=== PATIENT | female | born 1985 | race Caucasian/White ===

== ENCOUNTER 2016-08-09 11:36 | Emergency (ER) | payer OTHER ==
[2016-08-09 12:06] VITALS: BP 117/72
[2016-08-09] MEDS ORDERED: Ibuprofen TAB* 400 MG PO ONE (12:23)
--- NOTE | 2016-08-09 12:24 | ED ---
Upper Extremity Pain - History of Current Complaint Chief Complaint: EDExtremityUpper Stated Complaint: FALL/RT HAND /RT SIDE BACK PAIN Hx Obtained From: Patient Mechanism Of Injury: Fall From A Standing Position - pt fell down 1/2 flight of stairs, injured low back and R hand ambulatory after fall Onset/Duration: Started Hours Ago - 2 Timing: Constant Severity Initially: Moderate Severity Currently: Moderate Pain Location: Hand, Other: - low back Character: Throbbing, Stiffness Aggravating Factor(s): Movement Alleviating Factor(s): Rest, Ice Associated Signs & Symptoms: Positive: Swelling - R hand, Bruising - R hand. Negative: Weakness, Numbness/Tingling Related History: Dominant Hand Right - Allergies/Home Medications Allergies/Adverse Reactions: Allergies Allergy/AdvReac Type Severity Reaction Status Date / Time No Known Allergies Allergy Verified 06/19/16 14:35 PMH/Surg Hx/FS Hx/Imm Hx Previously Healthy: Yes Endocrine/Hematology History: Denies: Hx Blood Disorders Cardiovascular History: Denies: Other Cardiovascular Problems/Disorders Respiratory History: Denies: Other Respiratory Problems/Disorders GI History: Denies: Other GI Disorders History: Reports: Other Problems/Disorders - Hx UTI Musculoskeletal History: Denies: Other Musculoskeletal History Neurological History: Denies: Hx Headaches, Other Neuro Impairments/Disorders Psychiatric History: Denies: Hx Anxiety, Hx Depression - Surgical History Surgery Procedure, Year, and Place: tubal Infectious Disease History: No Infectious Disease History: Denies: Traveled Outside the [place] in Last 30 Days - Family History Known Family History: Positive: Other Family History: Mother Hx of UTIs - Social History Alcohol Use: None Substance Use Type: Reports: None Smoking Status (MU): Light Every Day Tobacco Smoker Review of Systems Constitutional: Negative Cardiovascular: Negative Negative: Chest Pain Respiratory: Negative Negative: Shortness Of Breath Gastrointestinal: Negative Negative: Abdominal Pain Positive: Other - see note Positive: Bruising - R hand Neurological: Negative Negative: Headache Psychological: Normal All Other Systems Reviewed And Are Negative: Yes Physical Exam Triage Information Reviewed: Yes Vital Signs On Initial Exam: Initial Vitals Temp Pulse Resp BP Pulse Ox 98 F 91 15 117/72 100 08/09/16 11:58 08/09/16 11:58 08/09/16 11:58 08/09/16 11:58 08/09/16 11:58 Vital Signs Reviewed: Yes Appearance: Positive: Well-Appearing, No Pain Distress, Obese Skin: Positive: Warm, Skin Color Reflects Adequate Perfusion, Dry Neck: Positive: Supple, Nontender Respiratory/Lung Sounds: Positive: Clear to Auscultation Cardiovascular: Positive: Normal, RRR, Pulses are Symmetrical in both Upper and Lower Extremities Abdomen Description: Positive: Nontender, Soft Musculoskeletal: Positive: Strength/ROM Intact - pain with R hanf flexion. low back pain on palp L4-L5 and with flexion Neurological: Positive: Normal, Sensory/Motor Intact, Alert, Oriented to Person Place, Time Psychiatric: Positive: Normal Diagnostics - Vital Signs Vital Signs Temp Pulse Resp BP Pulse Ox 08/09/16 11:58 98 F 91 15 117/72 100 - Laboratory Lab Statement: Any lab studies that have been ordered have been reviewed, and results considered in the medical decision making process. Course/Dx - Course Course Of Treatment: iStop Reference #: [id number] - Diagnoses Differential Diagnosis/HQI/PQRI: Positive: Contusion, Fracture (Closed), Strain , Sprain Provider Diagnoses: Contusion, Low back strain Discharge - Discharge Plan Condition: Stable Disposition: HOME Prescriptions: HYDROcodone/ACETAMIN 5-325 MG* [[place] 5-325 TAB*] 1 tab PO Q4H PRN #12 tab MDD 6 PRN Reason: Pain Patient Education Materials: Contusion in Adults (ED), Low Back Strain (ED) Referrals: No Primary Care Phys,NOPCP [Primary Care Provider] - Yue Quintero MD [Medical Doctor] - 1 Week (if hand pain is no better) Additional Instructions: apply ice to areas of pain for 48-72h use ibuprofen as directed over the counter for pain use hydrocodone for severe pain for short time only. Return here if symptoms worsen
--- NOTE | 2016-08-09 13:11 | RAD ---
INDICATION: Right hand pain COMPARISON: None TECHNIQUE: AP, lateral, and oblique views were obtained. FINDINGS: The bony structures, joint spaces, and soft tissues are normal for age. IMPRESSION: NEGATIVE EXAMINATION.
--- NOTE | 2016-08-09 13:11 | RAD ---
INDICATION: Back pain COMPARISON: None TECHNIQUE: Routine PA, lateral, and oblique imaging was performed . FINDINGS: Bones: There are no acute bony findings. There are no significant osteoarthritic findings. Alignment: Normal Disc spaces: The disc spaces are well-maintained Soft tissues: There are no soft tissue abnormalities. IMPRESSION: NO ACUTE BONY FINDINGS.
== END 2016-08-09 13:54 | disposition home or self-care (01) ==
LOC: ED 11:36
DX: S30.0XXA Contusion of lower back and pelvis, initial encounter (principal); S39.012A Strain of muscle, fascia and tendon of lower back, initial encounter; S60.221A Contusion of right hand, initial encounter; M79.89 Other specified soft tissue disorders; W10.9XXA Fall (on) (from) unspecified stairs and steps, initial encounter; Y93.9 Activity, unspecified; Y92.9 Unspecified place or not applicable; Y99.9 Unspecified external cause status; F17.210 Nicotine dependence, cigarettes, uncomplicated
CPT/HCPCS: 72110; 99282; A9270-GY

== ENCOUNTER 2017-02-13 20:10 | Emergency (ER) | payer OTHER ==
[2017-02-13 21:30] LABS: UR Preg Internal Control QC Line Present; UR Preg Kit Lot# OK
[2017-02-13 21:33] LABS: Urine Bacteria Absent (Absent); Urine Bilirubin Negative (Negative); Urine Glucose Negative (Negative); Urine Nitrite Negative (Negative)
[2017-02-13] MEDS ORDERED: Ketorolac INJ* 30 MG/ML 1 ML VIAL IV PUSH ONE (22:00)
[2017-02-13 22:12] LABS: Hematocrit 39 % (35-47); Hemoglobin 12.8 g/dl (12.0-16.0); Mean Corpuscular HGB Conc 33 g/dl (31-36); Mean Corpuscular Hemoglobin 31 pg (27-31); Mean Corpuscular Volume 94 fL (80-97); Mean Platelet Volume 8 um3 (7.4-10.4); Red Blood Count 4.13 10^6/ul (4.0-5.4); Red Cell Distribution Width 14 % (10.5-15); White Blood Count 10.4 10^3/ul (3.5-10.8)
[2017-02-13 22:23] LABS: ALT 15 U/L (7-52); AST 18 U/L (13-39); Albumin 3.7 g/dL (3.2-5.2); Alkaline Phosphatase 46 U/L (34-104); Anion Gap 4 mmol/L (2-11); BUN/Creatinine Ratio 17.1 (8-20); Blood Urea Nitrogen 13 mg/dL (6-24); CO2 Carbon Dioxide 27 mmol/L (22-32); Calcium 9.3 mg/dL (8.6-10.3); Chloride 105 mmol/L (101-111); EGFR African American 114.9 (>60); EGFR Non-African American 89.4 (>60); Globulin 3.2 g/dL (2-4); Glucose 86 mg/dL (70-100); Potassium 3.9 mmol/L (3.5-5.0); Sodium 136 mmol/L (133-145); Total Protein 6.9 g/dL (6.4-8.9)
[2017-02-13 22:46] LABS: C Reactive Protein 2.06 mg/L (< 5.00)
[2017-02-13] MEDS ORDERED: Sulfamethox/Trimethoprim DS 800/160* TAB PO ONE (23:45)
[2017-02-14] MEDS ORDERED: HYDROcodone/ACETAMIN 5-325 MG* 1 TAB PO ONE (00:28)
--- NOTE | 2017-02-14 00:31 | ED ---
Karri Joshua Thomas, scribed for Dora Rivera MD on 02/13/17 at 2147 . Abdominal Pain/Female - HPI Summary HPI Summary: The pt is a 31 y/o F accompanied by her son presenting to the ED c/o R flank pain that began two days ago. The pain radiates to her lower back. The pain worsened this AM, prompting an ED visit. She reports that the pain is intermittent and is rated 8/10. She describes the pain as stabbing. The pain is aggravated by lying on her L side. She took an Aleve at 16:00. She is unsure whether this pain feels like her previous kidney stone. Pt additionally c/o dysuria and suprapubic abd pain (with palpation). Pt denies vaginal discharge. G =3, P=3, A=0. She takes Lexapro daily. PMHx: UTIs, kidney stone last year, R wrist Fx as a child. PSHx: tubal ligation. SHx: no alcohol, no illicit drugs, light smoker. FHx: CHF, UTIs (mother). LNMP 02/07/17. - History of Current Complaint Chief Complaint: EDFlankPain Stated Complaint: FLANK PAIN,BURNING URINATION Hx Obtained From: Patient ?: No Onset/Duration: Lasting Days - 2 days, Still Present, Worse Since - this AM Timing: Constant Severity Initially: Moderate Severity Currently: Severe Pain Intensity: 8 Pain Scale Used: 0-10 Numeric Location: Flank - R (note initial nurse's note states left, pt indicates right to us and RYAN Bradley) Radiates: Yes Radiates to: Back Character: Other: - POS: stabbing Aggravating Factor(s): Other: - lying on L side Alleviating Factor(s): Nothing Associated Signs and Symptoms: Positive: Other: - POS: dysuria, suprapubic abd pain. Negative: Fever, Vaginal Discharge Allergies/Adverse Reactions: Allergies Allergy/AdvReac Type Severity Reaction Status Date / Time No Known Allergies Allergy Verified 02/13/17 20:32 PMH/Surg Hx/FS Hx/Imm Hx Previously Healthy: No Endocrine/Hematology History: Denies: Hx Blood Disorders Cardiovascular History: Denies: Other Cardiovascular Problems/Disorders Respiratory History: Denies: Other Respiratory Problems/Disorders GI History: Denies: Other GI Disorders History: Reports: Hx Kidney Stones, Other Problems/Disorders - Hx UTI Musculoskeletal History: Denies: Other Musculoskeletal History Neurological History: Denies: Hx Headaches, Other Neuro Impairments/Disorders Psychiatric History: Denies: Hx Anxiety, Hx Depression - Surgical History Surgery Procedure, Year, and Place: tubal - Immunization History Date of Tetanus Vaccine: utd Date of Influenza Vaccine: utd Infectious Disease History: No Infectious Disease History: Denies: Traveled Outside the [place] in Last 30 Days - Family History Known Family History: Positive: Other - UTIs (mother), CHF (grandfather) Family History: Mother Hx of UTIs - Social History Lives: With Family Alcohol Use: None Substance Use Type: Reports: None Smoking Status (MU): Light Every Day Tobacco Smoker Review of Systems Constitutional: Negative Negative: Fever Eyes: Negative ENT: Negative Cardiovascular: Negative Respiratory: Negative Positive: Abdominal Pain - suprapubic, worsened with palpation Positive: dysuria, flank pain - onset yesterday at 15:00, right . Negative: discharge Musculoskeletal: Negative Skin: Negative Neurological: Negative Psychological: Normal All Other Systems Reviewed And Are Negative: Yes Physical Exam Triage Information Reviewed: Yes Vital Signs On Initial Exam: Initial Vitals Temp Pulse Resp BP Pulse Ox 96.9 F 100 18 129/72 100 02/13/17 20:11 02/13/17 20:11 02/13/17 20:11 02/13/17 20:11 02/13/17 20:11 Vital Signs Reviewed: Yes Appearance: Positive: Well-Appearing, Well-Nourished, Pain Distress Skin: Positive: Warm, Skin Color Reflects Adequate Perfusion Head/Face: Positive: Normal Head/Face Inspection Eyes: Positive: Conjunctiva Clear ENT: Positive: Normal ENT inspection Neck: Positive: Supple Respiratory/Lung Sounds: Positive: Clear to Auscultation, Breath Sounds Present , Other - No respiratory distress Cardiovascular: Positive: RRR, Pulses are Symmetrical in both Upper and Lower Extremities, Other - Brisk cap refill. Negative: Rub Abdomen Description: Positive: Soft, Other: - Mild tenderness to suprapubic area. No RUQ tenderness. No RLQ tenderness.. Negative: Splenomegaly Bowel Sounds: Positive: Present Musculoskeletal: Positive: Strength/ROM Intact Neurological: Positive: Sensory/Motor Intact, Alert, Oriented to Person Place, Time, Speech Normal. Negative: Facial Droop, Focal Deficit @, Slurred Speech Psychiatric: Positive: Normal - [place] Coma Scale Coma Scale Total: 15 Diagnostics - Vital Signs Vital Signs Temp Pulse Resp BP Pulse Ox 02/13/17 20:29 96.9 F 100 18 129/72 100 02/13/17 20:11 96.9 F 100 18 129/72 100 - Laboratory Lab Results: Lab Results 02/13/17 Range/Units 21:17 Urine Color Yellow Urine Appearance Cloudy Urine pH 6.0 (5-9) Ur Specific [place] 1.025 (1.010-1.030) Urine Protein Negative (Negative) Urine Ketones Negative (Negative) Urine Blood Negative (Negative) Urine Nitrate Negative (Negative) Urine Bilirubin Negative (Negative) Urine Urobilinogen Negative (Negative) Ur Leukocyte Esterase Trace H (Negative) Urine WBC (Auto) Trace(0-5/hpf) (Absent) Urine RBC (Auto) Trace(0-2/hpf) (Absent) Ur Squamous Epith Cells Present H (Absent) Urine Bacteria Absent (Absent) Urine Glucose Negative (Negative) Urine Ascorbic Acid * H (Negative) Urine Test Negative (Negative) Result Diagrams: 02/13/17 21:10 02/13/17 21:10 Lab Statement: Any lab studies that have been ordered have been reviewed, and results considered in the medical decision making process. Re-Evaluation - Re-Evaluation First Eval Re-Evaluation Time: 00:10 - still with some right flank pain, but improved. No RUQ or RLQ abd pain Change: Improved Abdominal Pain Fem Course/Dx - Course Course Of Treatment: The pt is a 31 y/o F accompanied by her son presenting to the ED c/o R flank pain that began two days ago. (Initial nurses note references L flank pain, in the room the pt references R flank pain, which is confirmed with future nurses notes). The pain radiates to her lower back. The pain worsened this AM, prompting an ED visit. She reports that the pain is intermittent and is rated 8/10. She describes the pain as stabbing. The pain is aggravated by lying on her L side. She took an Aleve at 16:00. She is unsure whether this pain feels like her previous kidney stone. Pt additionally c/o dysuria and suprapubic abd pain (with palpation). Pt denies vaginal discharge. G =3, P=3, A=0. She takes Lexapro daily. PMHx: UTIs, kidney stone last year, R wrist Fx as a child. PSHx: tubal ligation. SHx: no alcohol, no illicit drugs, light smoker. FHx: CHF, UTIs (mother). LNMP 02/07/17. CT Abd/Pel was ordered in the ED as well as UA and bloodwork. UA shows trace leukocyte esterase, squamous epithelial cells present, and ascorbic acid present. Ascorbic acid can interfere with detection of blood, so with pt's hx kidney stones and flank pain , ordered the CT. Patients medication reviewed this visit. The pt was given Toradol in the ED course. Urine shows ascorbic acid, so we will continue with a CT Abd/Pel to rule out possible kidney stone. CT shows left ovarian follicle and 1mm nonobstructing right calyceal renal stone. Istop shows last narcotic was 11/10/16 #12 oxycodone. Will prescribe [place] #12 and Bactrim bid x 7 days. - Diagnoses Differential Diagnosis: Positive: Appendicitis, Gall Bladder Disease, Renal Colic, Urinary Tract Infection, Other - pyelonephritis Provider Diagnoses: Acute right flank pain, UTI (urinary tract infection), Kidney calculus Is Visit Related: No - Provider Notifications Discussed Care Of Patient With: Selvin Carcamo radiologist. "at the " in the report is a voice dictation error Time Discussed With Above Provider: 00:15 Discharge - Discharge Plan Condition: Stable Disposition: HOME Prescriptions: HYDROcodone/ACETAMIN 5-325 MG* [[place] 5-325 TAB*] 1 tab PO Q4H PRN #12 tab MDD 6 PRN Reason: Pain Sulfamethox/Trimethoprim DS* [Bactrim DS 800/160 TAB*] 1 tab PO BID #14 tab Patient Education Materials: Urinary Tract Infection in Women (ED), Kidney Stones (ED), Flank Pain (ED) Referrals: Jessica Nava [Primary Care Provider] - 3 Days Additional Instructions: Dr. Rivera is treating you for a UTI with Bactrim. The CT shows a 1mm stone in your right kidney (in the calyx). It is nonobstructing. Both are possible causes for your right flank pain. Since the stone is high in your kidney, it may not pass and the pain may just resolve. You were give toradol with some relief of pain. The CT also showed a left ovarian follicle. You should follow up with your primary care doctor for both of these findings on the CT. Dr. Rivera has dispensed hydrocodone that you may take for pain at home, and you should fill prescriptions for the hydrocodone and Bactrim tomorrow. Return to the ER if you have new or worsening pain. The documentation as recorded by the Karri sutherland Thomas accurately reflects the service I personally performed and the decisions made by me, Dora Rivera MD.
[2017-02-14 00:49] VITALS: BP 123/69
--- NOTE | 2017-02-14 06:57 | RAD ---
INDICATION: Right flank abdominal pain. COMPARISON: Comparison is made with a prior CT of the abdomen and pelvis from June 19, 2016. TECHNIQUE: A CT scan of the abdomen and pelvis was performed without intravenous or oral contrast. Contiguous axial sections were obtained from the lung bases through the symphysis pubis. Images were reconstructed in the coronal and sagittal planes. FINDINGS: There is mild dependent bilateral lower lobe subsegmental atelectasis. No pleural effusion is present. The liver and spleen are within normal limits in size without significant focal abnormality on this noncontrast study. No calcified gallstones are seen. The pancreas appears to be within normal limits in size. The adrenal glands and kidneys are normal in size. There is a punctate 1 mm calculus in the upper pole of the right kidney. No hydronephrosis is seen. No ureteral or bladder calculi are seen. There are several calcifications which project bilaterally in the pelvis posterior to the bladder which are unchanged from the prior exam most consistent with phleboliths. The aorta is normal in caliber without significant calcific plaque. No significant enlarged retroperitoneal lymph nodes are seen. The stomach, small and large bowel appear nondistended. The appendix is within normal limits. There is no evidence for diverticulitis or colitis. There is a small periumbilical hernia containing fat. The uterus is anteverted and normal in size. No free intraperitoneal air or fluid is seen. There is a 2 cm left ovarian cyst. No significant focal osseous abnormality is seen. IMPRESSION: 1. PUNCTATE NONOBSTRUCTING RIGHT RENAL CALCULUS. 2. 2 CM LEFT OVARIAN CYST.
== END 2017-02-14 00:45 | disposition home or self-care (01) ==
LOC: ED 20:10
DX: N39.0 Urinary tract infection, site not specified (principal); R10.84 Generalized abdominal pain; N20.0 Calculus of kidney
CPT/HCPCS: 36415; 74176; 80053; 81003; 81015; 81025; 83605; 84702; 85025; 86140; 87086; 96374; 99282; A9270-GY; J1885

== ENCOUNTER 2017-04-14 19:13 | Emergency (ER) | payer MEDICAID, OTHER ==
[2017-04-14 20:02] LABS: Urine Bacteria Absent (Absent)
[2017-04-14 20:03] LABS: Urine Bilirubin Negative (Negative); Urine Glucose Negative (Negative); Urine Nitrite Negative (Negative)
[2017-04-14 20:04] LABS: Manual Entry Verification MER0007; UR Preg Internal Control QC Line Present
[2017-04-14 21:19] LABS: Hematocrit 39 % (35-47); Hemoglobin 13.3 g/dl (12.0-16.0); Mean Corpuscular HGB Conc 34 g/dl (31-36); Mean Corpuscular Hemoglobin 31 pg (27-31); Mean Corpuscular Volume 92 fL (80-97); Mean Platelet Volume 7 um3 (7.4-10.4); Red Blood Count 4.25 10^6/ul (4.0-5.4); Red Cell Distribution Width 14 % (10.5-15); White Blood Count 10.4 10^3/ul (3.5-10.8)
[2017-04-14 21:36] LABS: BUN/Creatinine Ratio 20.7 (8-20); Calcium 9.3 mg/dL (8.6-10.3); EGFR African American 105.3 (>60); EGFR Non-African American 81.9 (>60); Globulin 2.9 g/dL (2-4); Potassium 4.3 mmol/L (3.5-5.0); Total Bilirubin 0.2 mg/dL (0.2-1.0); Total Protein 6.9 g/dL (6.4-8.9)
--- NOTE | 2017-04-14 21:41 | RAD ---
CLINICAL HISTORY: Right-sided flank pain COMPARISON: February 13, 2017 TECHNIQUE: Multiple contiguous axial CT scans were obtained of the abdomen and pelvis, without intravenous contrast enhancement. Coronal and sagittal multiplanar reformations are submitted for review. Oral contrast was not administered. FINDINGS: The study is limited by the lack of intravenous contrast. This limits evaluation of the solid organs and vasculature. LUNG BASES: The lung bases are clear. LIVER: The liver is normal in shape, size, contour, and attenuation. BILE DUCTS: There is no intrahepatic or extrahepatic biliary dilatation. GALLBLADDER: The gallbladder is incompletely distended but is grossly normal. PANCREAS: The pancreas is normal, without mass or ductal dilatation. SPLEEN: Normal in size and appearance. UPPER GI TRACT: Evaluation of the gastrointestinal tract is limited by incomplete gastric distention. The upper GI tract is unremarkable. SMALL BOWEL AND MESENTERY: The small bowel is normal in contour, course, and caliber. There is no obstruction or dilatation. COLON: The colon is normal in contour, course, caliber. There is no pericolonic inflammatory change. There is a tubular, vermiform, hollow viscus that is blind ending, and originates from the cecum, consistent with a normal appendix. There is no periappendiceal inflammatory change. This is best seen on axial image 128 ADRENALS: Normal bilaterally. KIDNEYS: The kidneys are normal in shape, size, contour, and axis. There is no hydronephrosis or nephrolithiasis. The right upper pole calculus noted on the previous examination is not well-visualized on the current examination. BLADDER: The bladder is smooth in contour. PELVIC ORGANS: The uterus and adnexa are grossly normal for technique. AORTA: The aorta is normal. IVC: Unremarkable LYMPH NODES: There is no lymphadenopathy by size criteria. ABDOMINAL WALL: There is no evidence for abdominal wall hernia. BONES AND SOFT TISSUES: Minimal degenerative changes are noted OTHER: None IMPRESSION: NO HYDRONEPHROSIS OR NEPHROLITHIASIS.
--- NOTE | 2017-04-14 22:23 | ED ---
GI/ HPI - HPI Summary HPI Summary: 31F presents with right side flank pain and dysuria for week. She denies any loss of bowel or bladder or saddle anaesthesia. She denies any injury. She denies any fever. She denies any nausea or vomiting. Has history of kidney stone which states passed one two days ago. She states does not feel like kidney stone pain feels more like UTI. she admits to frequency and urgency. had in past. no abdominal pain. - History of Current Complaint Chief Complaint: EDUrogenitalProblems Time Seen by Provider: 04/14/17 20:22 Stated Complaint: LOWER BACK PAIN/BURNING WHEN URINATING Pain Intensity: 8 - Allergy/Home Medications Allergies/Adverse Reactions: Allergies Allergy/AdvReac Type Severity Reaction Status Date / Time No Known Allergies Allergy Verified 02/13/17 20:32 PMH/Surg Hx/FS Hx/Imm Hx Endocrine/Hematology History: Denies: Hx Blood Disorders Cardiovascular History: Denies: Other Cardiovascular Problems/Disorders Respiratory History: Denies: Other Respiratory Problems/Disorders GI History: Denies: Other GI Disorders History: Reports: Hx Kidney Stones, Other Problems/Disorders - Hx UTI Musculoskeletal History: Denies: Other Musculoskeletal History Neurological History: Denies: Hx Headaches, Other Neuro Impairments/Disorders Psychiatric History: Denies: Hx Anxiety, Hx Depression - Surgical History Surgery Procedure, Year, and Place: tubal - Immunization History Date of Tetanus Vaccine: utd Date of Influenza Vaccine: utd Infectious Disease History: No Infectious Disease History: Denies: Traveled Outside the [place] in Last 30 Days - Family History Known Family History: Positive: Other - UTIs (mother), CHF (grandfather) Family History: Mother Hx of UTIs - Social History Alcohol Use: None Substance Use Type: Reports: None Smoking Status (MU): Light Every Day Tobacco Smoker Review of Systems Negative: Fever Negative: Chest Pain Negative: Shortness Of Breath Negative: Abdominal Pain, Vomiting, Nausea Positive: dysuria, flank pain All Other Systems Reviewed And Are Negative: Yes Physical Exam Triage Information Reviewed: Yes Vital Signs On Initial Exam: Initial Vitals Temp Pulse Resp BP Pulse Ox 96.1 F 95 17 102/86 99 04/14/17 19:30 04/14/17 19:30 04/14/17 19:30 04/14/17 19:30 04/14/17 19:30 Vital Signs Reviewed: Yes Appearance: Positive: Well-Appearing Skin: Positive: Warm, Dry Head/Face: Positive: Normal Head/Face Inspection Eyes: Positive: Normal, EOMI, LUL, Conjunctiva Clear ENT: Positive: Normal ENT inspection, Pharynx normal, TMs normal Respiratory/Lung Sounds: Positive: Clear to Auscultation, Breath Sounds Present Cardiovascular: Positive: Normal, RRR Abdomen Description: Positive: Soft, CVA Tenderness (R), Other: - nontender abdomen Bowel Sounds: Positive: Present Diagnostics - Vital Signs Vital Signs Temp Pulse Resp BP Pulse Ox 04/14/17 19:30 96.1 F 95 17 102/86 99 - Laboratory Lab Results: Lab Results 04/14/17 04/14/17 04/14/17 Range/Units 19:50 21:07 21:07 WBC 10.4 (3.5-10.8) 10^3/ul RBC 4.25 (4.0-5.4) 10^6/ul Hgb 13.3 (12.0-16.0) g/dl Hct 39 (35-47) % MCV 92 (80-97) fL MCH 31 (27-31) pg MCHC 34 (31-36) g/dl RDW 14 (10.5-15) % Plt Count 243 (150-450) 10^3/ul MPV 7 L (7.4-10.4) um3 Neut % (Auto) 57.8 (38-83) % Lymph % (Auto) 31.5 (25-47) % [place] % (Auto) 7.6 (1-9) % Eos % (Auto) 2.4 (0-6) % Baso % (Auto) 0.7 (0-2) % Absolute Neuts (auto) 6.0 (1.5-7.7) 10^3/ul Absolute Lymphs (auto) 3.3 (1.0-4.8) 10^3/ul Absolute Monos (auto) 0.8 (0-0.8) 10^3/ul Absolute Eos (auto) 0.3 (0-0.6) 10^3/ul Absolute Basos (auto) 0.1 (0-0.2) 10^3/ul Absolute Nucleated RBC 0.01 10^3/ul Nucleated RBC % 0 Sodium 133 (133-145) mmol/L Potassium 4.3 (3.5-5.0) mmol/L Chloride 102 (101-111) mmol/L Carbon Dioxide 26 (22-32) mmol/L Anion Gap 5 (2-11) mmol/L BUN 17 (6-24) mg/dL Creatinine 0.82 (0.51-0.95) mg/dL Est GFR ( Amer) 105.3 (>60) Est GFR (Non-Af Amer) 81.9 (>60) BUN/Creatinine Ratio 20.7 H (8-20) Glucose 90 (70-100) mg/dL Calcium 9.3 (8.6-10.3) mg/dL Total Bilirubin 0.20 (0.2-1.0) mg/dL AST 17 (13-39) U/L ALT 14 (7-52) U/L Alkaline Phosphatase 49 (34-104) U/L Total Protein 6.9 (6.4-8.9) g/dL Albumin 4.0 (3.2-5.2) g/dL Globulin 2.9 (2-4) g/dL Albumin/Globulin Ratio 1.4 (1-3) Urine Color Yellow Urine Appearance Clear Urine pH 6 (5-9) Ur Specific [place] 1.020 (1.010-1.030) Urine Protein Negative (Negative) Urine Ketones Negative (Negative) Urine Blood Negative (Negative) Urine Nitrate Negative (Negative) Urine Bilirubin Negative (Negative) Urine Urobilinogen Negative (Negative) Ur Leukocyte Esterase Negative (Negative) Urine WBC (Auto) Trace(0-5/hpf) (Absent) Urine RBC (Auto) Absent (Absent) Ur Squamous Epith Cells Present H (Absent) Urine Bacteria Absent (Absent) Urine Glucose Negative (Negative) Urine Ascorbic Acid Pending Urine Test Negative (Negative) Result Diagrams: 04/14/17 21:07 04/14/17 21:07 Lab Statement: Any lab studies that have been ordered have been reviewed, and results considered in the medical decision making process. GIGU Course/Dx - Course Course Of Treatment: 31F presents with right side flank pain and dysuria for week. She denies any loss of bowel or bladder or saddle anaesthesia. She denies any fever. She denies any nausea or vomiting. Has history of kidney stone which states passed one two days ago. states does not feel like kidney stone pain feels more like UTI. admits to frequency. had in past. no abdominal pain. on exam CVA tenderness R flank. nontender abdomen. CT abdoimen normal. is having uti type symptoms but urine only had wbc+1, discussed patient would like to wait and if cultures significant amount will treat otherwise if only mild amount will not treat. - Diagnoses Differential Diagnoses - Female: Pyelonephritis, Urinary Tract Infection, Ureteral Calculi Provider Diagnoses: Flank pain Discharge - Discharge Plan Condition: Good Disposition: HOME Patient Education Materials: Flank Pain (ED) Referrals: Jessica Nava [Primary Care Provider] - Additional Instructions: Take Tylenol or ibuprofen every 6 hours Follow up with primary within 5 days Return to ED if develop any new or worsening symptoms
[2017-04-14 22:31] VITALS: BP 131/67
== END 2017-04-14 22:30 | disposition home or self-care (01) ==
LOC: ED 19:13
DX: R10.84 Generalized abdominal pain (principal); R30.0 Dysuria; F17.210 Nicotine dependence, cigarettes, uncomplicated
CPT/HCPCS: 36415; 74176; 80053; 81003; 81025; 85025; 99282

== ENCOUNTER 2017-05-16 01:25 | Emergency (ER) | payer OTHER ==
[2017-05-16] MEDS ORDERED: Penicillin VK TAB* 250 MG PO ONE (01:57)
--- NOTE | 2017-05-16 01:57 | ED ---
Throat Pain/Nasal Congestion - HPI Summary HPI Summary: 32F presents with dental pain for a day. She states she has a general dentist appointment on . She states that she developed the pain out of nowhere today. She denies any abscess, fever, pain with eye movement, swelling around eyes, SOB, or chest pain. She denies any dental fracture. She states she needs her wisdom teeth removed. She took Tylenol, ibuprofen, orogel, and placed heat on area without relief. She denies any recent dental infections. pain is 10/10. She admits to nausea due to pain but denies any vomiting. She denies any abdominal pain. - History of Current Complaint Chief Complaint: EDDentalPain Time Seen by Provider: 05/16/17 01:49 - Allergies/Home Medications Allergies/Adverse Reactions: Allergies Allergy/AdvReac Type Severity Reaction Status Date / Time No Known Allergies Allergy Verified 05/16/17 01:29 PMH/Surg Hx/FS Hx/Imm Hx Endocrine/Hematology History: Denies: Hx Blood Disorders Cardiovascular History: Denies: Other Cardiovascular Problems/Disorders Respiratory History: Denies: Other Respiratory Problems/Disorders GI History: Denies: Other GI Disorders History: Reports: Hx Kidney Stones, Other Problems/Disorders - Hx UTI Musculoskeletal History: Denies: Other Musculoskeletal History Neurological History: Denies: Hx Headaches, Other Neuro Impairments/Disorders Psychiatric History: Denies: Hx Anxiety, Hx Depression - Surgical History Surgery Procedure, Year, and Place: tubal - Immunization History Date of Tetanus Vaccine: utd Date of Influenza Vaccine: utd Infectious Disease History: No Infectious Disease History: Denies: Traveled Outside the [place] in Last 30 Days - Family History Known Family History: Positive: Other - UTIs (mother), CHF (grandfather) Family History: Mother Hx of UTIs - Social History Alcohol Use: None Substance Use Type: Reports: None Smoking Status (MU): Light Every Day Tobacco Smoker Review of Systems Negative: Fever Positive: Dental Pain Negative: Chest Pain Negative: Shortness Of Breath Positive: Nausea. Negative: Abdominal Pain, Vomiting All Other Systems Reviewed And Are Negative: Yes Physical Exam Triage Information Reviewed: Yes Vital Signs On Initial Exam: Initial Vitals Temp Pulse Resp BP Pulse Ox 97.6 F 87 18 137/92 100 05/16/17 01:27 05/16/17 01:27 05/16/17 01:27 05/16/17 01:27 05/16/17 01:27 Vital Signs Reviewed: Yes Appearance: Positive: Pain Distress Skin: Positive: Warm, Dry Head/Face: Positive: Normal Head/Face Inspection Eyes: Positive: Normal, EOMI, LUL, Conjunctiva Clear ENT: Positive: Normal ENT inspection, Pharynx normal, TMs normal Dental: Positive: Percussion Tenderness @ - 2. Negative: Gross Decay/Caries @, Dental Fracture @, Abscess @, Bleeding Respiratory/Lung Sounds: Positive: Clear to Auscultation, Breath Sounds Present Cardiovascular: Positive: Normal, RRR Abdomen Description: Positive: Nontender, Soft Bowel Sounds: Positive: Present Diagnostics - Vital Signs Vital Signs Temp Pulse Resp BP Pulse Ox 05/16/17 01:27 97.6 F 87 18 137/92 100 - Laboratory Lab Statement: Any lab studies that have been ordered have been reviewed, and results considered in the medical decision making process. EENT Course/Dx - Course Course Of Treatment: 32F presents with dental pain for a day. She states she has a general dentist appointment on . She states that she developed the pain out of nowhere today. She denies any abscess, fever, pain with eye movement, swelling around eyes, SOB, or chest pain. She denies any dental fracture. She states she needs her wisdom teeth removed. She took tyenlol, ibuprofen, orogel, and placed heat on area without relief. she also admits to nausea from the pain. on exam tenderness to percussion tooth 2 with no abscess felt. no edema around eyes. will treat with PCN due to potential infection. istop consulted no recent narcoctic scripts. will send for percocet for a couple days and zofran too. patient understands and agrees with plan. - Differential Diagnoses Differential Diagnoses: Dental Abscess, Dental Caries, Fractured Tooth - Diagnoses Provider Diagnoses: Dental infection Discharge - Discharge Plan Condition: Good Disposition: HOME Prescriptions: Ondansetron ODT TAB* [Zofran 4 MG Odt TAB*] 4 mg PO Q6H PRN #12 tab.odt PRN Reason: Nausea Penicillin VK TAB* [Penicillin VK 250 mg Tab*] 500 mg PO QID #27 tab oxyCODONE/Acetamin 5/325 MG* [Percocet 5/325 TAB*] 1 tab PO Q6H PRN #12 tab MDD 4 PRN Reason: Pain Patient Education Materials: Toothache (ED) Referrals: Bree VICENTE,Jessica [Primary Care Provider] - Additional Instructions: Take antibiotics: 4 times a day for 7 days, first dose given in ED Use ibuprofen every 6 hours and narcotic for break through pain at night Avoid hard, crunchy food until seen by dentist Follow up with dentist as soon as possible Return to ED if develop fever, shortness of breath, pain with eye movement or swelling around eye Images - Images Dental: 1 - dental pain
[2017-05-16] MEDS ORDERED: oxyCODONE/Acetamin 5/325 MG* TAB PO ONE (01:58)
[2017-05-16] MEDS ORDERED: Ondansetron ODT TAB* 4 MG PO ONE (02:01)
[2017-05-16 02:26] VITALS: BP 130/80
== END 2017-05-16 02:26 | disposition home or self-care (01) ==
LOC: ED 01:25
DX: F17.210 Nicotine dependence, cigarettes, uncomplicated (principal); K04.7 Periapical abscess without sinus; K08.89 Other specified disorders of teeth and supporting structures; R11.0 Nausea
CPT/HCPCS: 99282; A9270-GY

== ENCOUNTER 2017-06-11 10:01 | Day surgery (SDC) | payer OTHER ==
[~2017-06-11 10:01] MED LIST: Buffered Lidocaine 0.9% SYRIN* 5 ML/SYR SYRINGE INTRADERM ONE; Sodium Citrate/Citric Acid* 15 ML UDC PO ONE
[2017-06-11] MEDS ORDERED: ceFAZolin 2 GM PREMIX (*) 2 GM/50 ML BAG IVPB ONE (10:33)
[2017-06-11] MEDS ORDERED: Buffered Lidocaine 0.9% SYRIN* 5 ML/SYR SYRINGE ONE (10:33)
[2017-06-11] MEDS ORDERED: Sodium Citrate/Citric Acid* 15 ML UDC ONE (10:33)
[2017-06-11] MEDS ORDERED: Lidocaine 1% INJ* 10 MG/ML 30 ML SDV ONE (11:01)
[2017-06-11] MEDS ORDERED: fentaNYL* 50 MCG/ML 2 ML VIAL (100 MCG VIAL) ONE (11:19)
[2017-06-11] MEDS ORDERED: Propofol* 10 MG/ML 20 ML BTL IV PUSH ONE (11:19)
[2017-06-11] MEDS ORDERED: Lidocaine 2% PF * 5 ML VIAL ONE (11:20)
[2017-06-11] MEDS ORDERED: Ibuprofen TAB* 600 MG PO PRN (11:56)
[2017-06-11] MEDS ORDERED: oxyCODONE/Acetamin 5/325 MG* TAB PO PRN (11:56)
[2017-06-11 14:02] VITALS: BP 117/81
--- NOTE | 2017-06-12 03:39 | OP ---
DATE OF OPERATION: 06/11/17 [facility] DATE OF : 87 SURGEON: Dr. Kilpatrick. ANESTHESIOLOGIST: Dr. Diaz. ANESTHESIA: Sedation and local. PRE-OP DIAGNOSIS: Recurrent right Bartholin's cyst. POST-OP DIAGNOSIS: Recurrent right Bartholin's cyst. OPERATIVE PROCEDURE: Marsupialization of right Bartholin's cyst. FINDINGS: Approximately 4 cm right Bartholin's abscess, otherwise normal- appearing perineum. There was some scarring on the medial aspect just lateral to the hymenal ring where a prior Word catheter had been placed. COMPLICATIONS: None. COUNTS: Sponge, lap and needle count correct x2. CONDITION: The patient tolerated the procedure very well and was brought to recovery room awake and in stable condition. DESCRIPTION OF PROCEDURE: After anesthesia was found to be adequate, the patient was prepped and draped in the usual sterile fashion in the dorsal lithotomy position. Time-out was performed. Lidocaine was injected around the Bartholin's cyst. A 1.5 cm incision was made just lateral to the hymenal ring on the right side. The cyst was emptied of its contents, which was mostly pus. The inner cyst wall was sutured to the mucosa with five interrupted sutures of 3-0 Vicryl. Excellent hemostasis was achieved. All instruments removed from the vagina. The patient was brought to recovery room, awake and in stable condition. [id number]/CPS #: [id number] MTDD
== END 2017-06-11 14:10 | disposition home or self-care (01) ==
LOC: OR 10:01
PROVIDERS: ATTEND Obstetrics & Gynecology
DX: N75.0 Cyst of Bartholin's gland (principal); Z87.891 Personal history of nicotine dependence; N87.1 Moderate cervical dysplasia; Z68.36 Body mass index [BMI] 36.0-36.9, adult
CPT/HCPCS: 81025; A9270-GY; J0690; J2001; J2704; J3010

== ENCOUNTER 2017-06-16 15:17 | Emergency (ER) | payer OTHER ==
--- NOTE | 2017-06-16 16:47 | ED ---
GI/ HPI - HPI Summary HPI Summary: 32F presents with dysuria, urgency, pelvic pain, and flank pain for 2 days. She states she had surgery on for a barothlin cyst and everything was going well. she states she was not catheterized. She denies any fever but states she has been having chills. She admits to nausea or vomiting. She denies any diarrhea or constipation. She has right flank pain. She states feels like typical uti. She states has history of them. She denies any vaginal discharge. - History of Current Complaint Chief Complaint: EDUrogenitalProblems Time Seen by Provider: 06/16/17 16:14 Stated Complaint: POSSIBLE UTI Pain Intensity: 7 - Allergy/Home Medications Allergies/Adverse Reactions: Allergies Allergy/AdvReac Type Severity Reaction Status Date / Time No Known Allergies Allergy Verified 06/11/17 10:43 PMH/Surg Hx/FS Hx/Imm Hx Endocrine/Hematology History: Denies: Hx Blood Disorders Cardiovascular History: Denies: Other Cardiovascular Problems/Disorders Respiratory History: Denies: Other Respiratory Problems/Disorders GI History: Denies: Other GI Disorders History: Reports: Hx Kidney Stones - 2 months ago, Other Problems/ Disorders - Hx UTI Musculoskeletal History: Denies: Other Musculoskeletal History Sensory History: Reports: Hx Contacts or Glasses - contacts and glasses Denies: Hx Hearing Aid Opthamlomology History: Reports: Hx Contacts or Glasses - contacts and glasses Neurological History: Denies: Hx Headaches, Other Neuro Impairments/Disorders Psychiatric History: Reports: Hx Anxiety - on meds Denies: Hx Depression - Surgical History Surgery Procedure, Year, and Place: tubal ligation, 2010, [facility] Hx Anesthesia Reactions: No - Immunization History Date of Tetanus Vaccine: utd Date of Influenza Vaccine: utd Infectious Disease History: No Infectious Disease History: Denies: Traveled Outside the [place] in Last 30 Days - Family History Known Family History: Positive: Other - UTIs (mother), CHF (grandfather) Family History: Mother Hx of UTIs - Social History Alcohol Use: None Substance Use Type: Reports: None Smoking Status (MU): Light Every Day Tobacco Smoker Amount Used/How Often: 1/2 pack for 5 years Review of Systems Negative: Fever Negative: Chest Pain Negative: Shortness Of Breath Positive: Vomiting, Nausea Positive: dysuria, flank pain All Other Systems Reviewed And Are Negative: Yes Physical Exam Triage Information Reviewed: Yes Vital Signs On Initial Exam: Initial Vitals Temp Pulse Resp BP Pulse Ox 97.4 F 95 20 121/78 100 06/16/17 15:36 06/16/17 15:36 06/16/17 15:36 06/16/17 15:36 06/16/17 15:36 Vital Signs Reviewed: Yes Appearance: Positive: Well-Appearing Skin: Positive: Warm, Dry Head/Face: Positive: Normal Head/Face Inspection Eyes: Positive: Normal, EOMI, LUL, Conjunctiva Clear ENT: Positive: Normal ENT inspection, Pharynx normal, TMs normal Respiratory/Lung Sounds: Positive: Clear to Auscultation, Breath Sounds Present Cardiovascular: Positive: Normal, RRR Abdomen Description: Positive: Soft, CVA Tenderness (R), Other: - mild suprapubic tenderness Bowel Sounds: Positive: Present Musculoskeletal: Positive: Normal Neurological: Positive: Normal Psychiatric: Positive: Normal Diagnostics - Vital Signs Vital Signs Temp Pulse Resp BP Pulse Ox 06/16/17 15:36 97.4 F 95 20 121/78 100 - Laboratory Result Diagrams: 06/16/17 17:04 06/16/17 17:04 Lab Statement: Any lab studies that have been ordered have been reviewed, and results considered in the medical decision making process. - Ultrasound No standard instances Ultrasound Interpretation: No Acute Changes - IMPRESSION: There is no hydronephrosis or definite renal calculi bilaterally. There is a nonspecific echogenic line seen at the right renal collecting system. Please correlate to history of any interventions to the right kidney. Ultrasound Interpretation Completed By: Radiologist [place] Course/Dx - Course Course Of Treatment: 32F presents with dysuria, urgency, pelvic pain, and flank pain for 2 days. She states she had surgery on for a barothlin cyst and everything was going well. she states she was not catheterized. She denies any fever but states she has been having chills. She admits to nausea or vomiting. She denies any diarrhea or constipation. She has right flank pain. She states feels like typical uti. She states has history of them. She denies any vaginal discharge. on exam has pos CVA tenderness right. suprapubic tenderness. labs normal. urine leuko presents so will treat as uti possible pyelo with cipro and zofran. patient understand and agrees with plan. - Diagnoses Differential Diagnoses - Female: Pyelonephritis, Urinary Tract Infection, Ureteral Calculi Provider Diagnoses: Abdominal pain, Dysuria Discharge - Discharge Plan Condition: Good Disposition: HOME Prescriptions: Ciprofloxacin TAB* [Cipro 500 MG TAB*] 500 mg PO BID #28 tab Ondansetron ODT TAB* [Zofran 4 MG Odt TAB*] 4 mg PO Q6H PRN #20 tab.odt PRN Reason: Nausea Patient Education Materials: Urinary Tract Infection in Women (ED) Referrals: Jessica Nava [Primary Care Provider] - Additional Instructions: Take antibiotic twice a day for 14 days, starting tomorrow Use Zofran every 6 hours for nausea as needed Drink plenty of water Take Tylenol or ibuprofen every 6 hours as needed for pain and fever Return to ED if develop severe vomiting, or any new or worsening symptoms
[2017-06-16 17:06] LABS: Urine Bacteria Absent (Absent); Urine Bilirubin Negative (Negative); Urine Glucose Negative (Negative); Urine Nitrite Negative (Negative)
[2017-06-16 17:15] LABS: Hematocrit 40 % (35-47); Hemoglobin 13.4 g/dl (12.0-16.0); Mean Corpuscular HGB Conc 33 g/dl (31-36); Mean Corpuscular Hemoglobin 31 pg (27-31); Mean Corpuscular Volume 92 fL (80-97); Mean Platelet Volume 7 um3 (7.4-10.4); Red Blood Count 4.35 10^6/ul (4.0-5.4); Red Cell Distribution Width 14 % (10.5-15); White Blood Count 7.1 10^3/ul (3.5-10.8)
[2017-06-16 17:34] LABS: UR Preg Internal Control QC Line Present
[2017-06-16 17:39] LABS: BUN/Creatinine Ratio 16.2 (8-20); EGFR African American 129.8 (>60); EGFR Non-African American 100.9 (>60); Globulin 3.1 g/dL (2-4); Total Bilirubin 0.2 mg/dL (0.2-1.0); Total Protein 7.1 g/dL (6.4-8.9)
--- NOTE | 2017-06-16 18:58 | RAD ---
INDICATION: Right flank pain and dysuria COMPARISON: CT of the abdomen and pelvis dated June 19, 2016 TECHNIQUE: Real-time ultrasound examination of the bilateral kidneys and urinary bladder including grayscale and Doppler color flow analysis. FINDINGS: The right kidney measures 10.4 x 4.2 x 4.7 cm and the left kidney measures 11.6 x 5.6 x 4.5 cm. At the upper pole the right kidney there is an anechoic and avascular cortical cyst measuring 1.2 cm in greatest dimension. At the mid-level right kidney at the junction of the collecting system and cortex there is an echogenic nonshadowing line of unclear etiology. There is no hydronephrosis bilaterally. IMPRESSION: There is no hydronephrosis or definite renal calculi bilaterally. There is a nonspecific echogenic line seen at the right renal collecting system. Please correlate to history of any interventions to the right kidney.
[2017-06-16 19:21] VITALS: BP 115/80
== END 2017-06-16 19:22 | disposition home or self-care (01) ==
LOC: ED 15:17
DX: R30.0 Dysuria (principal); R10.9 Unspecified abdominal pain
CPT/HCPCS: 36415; 76775; 80053; 81003; 81015; 81025; 83690; 85025; 86141; 87086; 99282